=== PATIENT | female | born 1980 | race Caucasian/White ===

== ENCOUNTER 2022-08-29 11:34 | Emergency (ER) | payer SELFPAY ==
[2022-08-29 11:47] VITALS: BP 133/80; PULSE 71; RESP 18; TEMP 36.5; O2SAT 98; BMI 25.6
[2022-08-29 12:11] LABS: Amorphous Sediment Urine 1+ /hpf; Bacteria Urine 1+ /hpf; Bilirubin Urine Neg (Negative); Blood Urine Neg (Negative); Glucose Urine UA Norm (Normal); Ketones Urine Negative (Negative); Leukocyte Esterase Urine Negative (Negative); Nitrate Urine Negative (Negative); Protein Urine Neg (Negative); RBC Urine RARE /hpf (0-2); Sulfosalicylic Acid Urine Negative (Negative); Urine Appearance Cloudy (CLEAR); Urine Color Yellow (Yellow); Urobilinogen Urine Norm (Negative); WBC Urine RARE /hpf (0-5); pH Urine 8 (5-7)
--- NOTE | 2022-08-29 13:46 | W.ED.ABDPA2 ---
HPI - Abdominal Pain General: Chief Complaint: Abdominal Pain Stated Complaint: Abd Pain Time Seen by Provider: 08/29/22 13:35 Source: patient Mode of arrival: EMS Limitations: no limitations History of Present Illness: Patient reports onset of right groin pain around 9:00 this morning. She states it was moderate severe in severity. She noticed a bulge in her right groin area. She denies any abdominal pain. She had nausea and vomiting just prior to arrival. States she had a recent normal bowel movement. Patient denies any fever. She states she has been doing heavy lifting recently due to the recent move. Past surgical history includes D&C. She denies any other abdominal surgery. She takes no routine medications. She denies any medical problems. Associated Symptoms: Reports nausea, vomiting and other (Pain in right groin consistent with hernia.); Denies chills and fever(s) Review of Systems Const: Denies: fever(s) or chills Eyes: Denies: change in vision ENMT: Denies: throat pain Card: Denies: chest pain or palpitations Resp: Denies: dyspnea or wheezing GI: Reports: nausea, vomiting and other (Pain in right groin consistent with hernia.) : Denies: flank pain Musc: Denies: neck pain or back pain Skin/Breast: Denies: rash or pruritus Neuro: Denies: headache(s) or numbness in extremities Psych: Reports: anxiety Collin/Lymph: Denies: enlarged lymph nodes PFS ED Supplemental [facility] Information: D&C Physical Exam Const: COMMON NORMALS: patient oriented x3, no limitations and well nourished GENERAL APPEARANCE: cooperative HENMT: COMMON NORMALS: normocephalic and atraumatic HEAD & SCALP: normocephalic and atraumatic FACE & SINUS: normal facial exam Eye: COMMON NORMALS: EOMs intact bilaterally Neck/C-Spine: COMMON NORMALS: full ROM, no lymphadenopathy, supple and no meningeal signs GENERAL: Yes normal visual inspection Lymph: LYMPHATIC: no lymphadenopathy noted Chest: COMMONS NORMALS: normal inspection of the chest and normal palpation of entire chest wall CHEST: No Ecchymosis present and No rash Resp: COMMON NORMALS: normal respiratory effort, No retractions and clear to auscultation bilaterally EFFORT & INSPECTION: No respiratory distress AUSCULTATION: clear to auscultation bilaterally Cardio: COMMON NORMALS: regular rate, regular rhythm and Peripheral pulses 2+ throughout JUGULAR VENOUS DISTENTION: no JVD RATE: regular rate RHYTHM: regular rhythm PERIPHERAL PULSES: Peripheral pulses 2+ throughout GI: COMMON NORMALS: Normal to inspection, nondistended, normoactive bowel sounds present and non-tender : OTHER: Patient appears to have a hernia to the right femoral area. Hernia is tender palpation. Hernia is partially reducible. However, I was unable to reduce the hernia completely. Extremity: COMMON NORMALS: normal to inspection, full ROM and capillary refill normal Neuro: COMMON NORMALS: patient oriented x3, CN's II-XII intact bilaterally, no focal motor deficits and no sensory deficits noted MENINGEAL SIGNS: Yes no meningeal signs Psych: COMMON NORMALS: mental status grossly normal and Normal thought process present THOUGHT PROCESS: Normal thought process present Skin: COMMON NORMALS: no rashes or lesions noted and no wounds GENERAL SKIN EXAM: no rashes or lesions noted Course Vital Signs: Vital signs: Vital Signs Temperature 97.7 F 08/29/22 11:47 Pulse Rate 71 08/29/22 11:47 Respiratory Rate 16 08/29/22 14:12 Blood Pressure 133/80 08/29/22 11:47 Pulse Oximetry 95 08/29/22 14:12 Oxygen Delivery Me thod 08/29/22 11:47 MDM - Abdominal Pain Medical Decision Making Incarcerated right femoral versus inguinal hernia. 1515: Patient states she had improvement of the swelling to the right groin. I reexamined the patient. The hernia in the right inguinal area has reduced spontaneously. Patient has minimal discomfort in that area now. Awaiting CT results. 1550: Discussed case with Dr. Bailey on-call for general surgery this weekend. 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 She states patient can be discharged home and follow-up with general surgeon next week for surgical consultation. Patient was advised to do no lifting. She was also advised to lay flat is much as possible this weekend. She will return to the hospital if she is unable to reduce the hernia on her own at home if it reoccurs. Lab Data 08/29/22 14:15 08/29/22 14:15 Labs/Radiology: Radiology Impressions Abdomen/Pelvis CT 08/29/22 15:00 IMPRESSION: Incarcerated appearing right femoral hernia currently without bowel obstruction Marked degenerative disc change with disc protrusion at L5-S1 as noted Involuting corpus luteal cyst and a 2 cm left ovarian cyst. Corpus luteum cyst in 2 cm left adnexal cyst Laboratory Results WBC 7.3 10^3/uL (4.0-10.0) 08/29/22 14:15 RBC 4.37 10^6/uL (4.1-5.3) 08/29/22 14:15 Hgb 12.3 g/dL (11.5-15.3) 08/29/22 14:15 Hct 38.7 % (37.0-47.0) 08/29/22 14:15 MCV 88.6 fl (81-99) 08/29/22 14:15 MCH 28.1 pg (28.0-34.0) 08/29/22 14:15 MCHC 31.8 g/dL (30.0-36.0) 08/29/22 14:15 RDW 12.6 % (12.1-15.1) 08/29/22 14:15 Plt Count 307 10^3/cmm (130-400) 08/29/22 14:15 MPV 8.4 fL (7.4-10.4) 08/29/22 14:15 Neut % (Auto) 70.6 % 08/29/22 14:15 Lymph % (Auto) 23.0 % 08/29/22 14:15 Tyler % (Auto) 3.9 % 08/29/22 14:15 Eos % (Auto) 2.1 % 08/29/22 14:15 Baso % (Auto) 0.3 % 08/29/22 14:15 Neut # (Auto) 5.13 10^3/uL (1.8-7.7) 08/29/22 14:15 Lymph # (Auto) 1.7 10^3/uL (0.8-4.8) 08/29/22 14:15 Tyler # (Auto) 0.3 10^3/uL (0.2-0.9) 08/29/22 14:15 Eos # (Auto) 0.2 10^3/uL (0.0-0.8) 08/29/22 14:15 Baso # (Auto) 0.0 10^3/uL (0.0-0.1) 08/29/22 14:15 Nucleated RBC % (auto) 0 % 08/29/22 14:15 Nucleated RBCs # 0.0 /100WBC 08/29/22 14:15 Sodium 137 mmol/L (136-145) 08/29/22 14:15 Potassium 4.0 mmol/L (3.5-5.1) 08/29/22 14:15 Chloride 103 mmol/L (98-107) 08/29/22 14:15 Carbon Dioxide 23 mmol/L (22-29) 08/29/22 14:15 Anion Gap 15.0 (5-19) 08/29/22 14:15 BUN 13 mg/dL (6-20) 08/29/22 14:15 Creatinine 0.6 mg/dL (0.5-0.9) 08/29/22 14:15 GFR Calculation 108.6 mL/min (90-130) 08/29/22 14:15 Glucose 91 mg/dL (65-115) 08/29/22 14:15 Calculated Osmolality 284 mOsm/kg (285-295) L 08/29/22 14:15 Calcium 8.7 mg/dL (8.5-10.5) 08/29/22 14:15 HCG, Qual Negative (Negative) 08/29/22 14:15 Urine Color Yellow (Yellow) 08/29/22 11:42 Urine Appearance Cloudy (CLEAR) A 08/29/22 11:42 Urine pH 8 (5-7) H 08/29/22 11:42 Ur Specific [place] 1.010 (1.005-1.030) 08/29/22 11:42 Urine Protein Neg (Negative) 08/29/22 11:42 Urine Glucose (UA) Norm (Normal) 08/29/22 11:42 Urine Ketones Negative (Negative) 08/29/22 11:42 Urine Blood Neg (Negative) 08/29/22 11:42 Urine Nitrate Negative (Negative) 08/29/22 11:42 Urine Bilirubin Neg (Negative) 08/29/22 11:42 Prot Sulfosalicylic Acd Negative (Negative) 08/29/22 11:42 Urine Urobilinogen Norm mg/dL (Negative) 08/29/22 11:42 Ur Leukocyte Esterase Negative (Negative) 08/29/22 11:42 Urine RBC Rare /hpf (0-2) 08/29/22 11:42 Urine WBC Rare /hpf (0-5) 08/29/22 11:42 Ur Squamous Epith Cells 5-10 /hpf (0-5) H 08/29/22 11:42 Amorphous Sediment 1+ /hpf 08/29/22 11:42 Urine Bacteria 1+ /hpf (NONE) H 08/29/22 11:[address] Abd/Pel: Radiologist's impression: Ordering Provider/Ordering MD: Glynn Reardon MD Date of Service: 08/29/22 Procedure(s): CT abdomen pelvis w con* [id number] Accession Number(s): [id number] Report Number: [id number] WS: [id number] EXAMINATION: CT abdomen pelvis w con* [id number] REASON FOR EXAM: L groin pain; r/o incarcerated femoral hernia right COMPARISON: None available. ORDER DATE: 08/29/2022 3:03 PM TOTAL EXAM DLP: 365.[address] scans at [facility] use at least one of these dose optimization techniques: automated exposure control; mA and/or kV adjustment per patient size (includes targeted exams where dose is matched to clinical indication); or iterative reconstruction. TECHNIQUE: Transaxial imaging through the abdomen and pelvis was performed with 2-D reformats following the intravenous administration of Omnipaque 350 100 ml FINDINGS: There are no acute changes in the visualized lung bases.? There is no sign of pneumoperitoneum. The liver was unremarkable. The gallbladder, spleen and pancreas were unremarkable. There is a normal appearance of both adrenal glands and both kidneys with small renal cysts. The small bowel pattern is not significantly dilated and there are no significant air-fluid levels.? There is a normal-appearing appendix.? There is moderate fecal loading of the colon. There is a small increase in cul-de-sac fluid.? The urinary bladder as imaged is unremarkable. The uterus is unremarkable. There is an incarcerated appearing right femoral hernia containing a loop of small bowel with wall thickening and enhancement. There is marked disc narrowing at L5-S1 with some endplate sclerotic change and prominent left paracentral disc protrusion compressing the thecal sac.. CT/CT abdomen pelvis w con* [id number] IMPRESSION: ? Incarcerated appearing right femoral hernia currently without bowel obstruction Marked degenerative disc change with disc protrusion at L5-S1 as noted Involuting corpus luteal cyst and a 2 cm left ovarian cyst. Corpus luteum cyst in 2 cm left adnexal cyst ? Dictated By: Alan Melgoza MD Signed By: Alan Melgoza MD Signed Date/Time: 08/29/22 1534 DD/ 1519 Discharge Plan Discharge Patient Disposition: Home Clinical Impression: Femoral hernia of right side without obstruction or gangrene Condition: Stable Prescriptions: No Action Pepcid 20 mg Tablet 20 mg PO DAILY Discharge Orders: Discharge ED (Routine); Ordered 08/29/22 Ordered By: Glynn Reardon Referrals: Cade Thacker DO [Physician] - 09/01/22 9:00 am (Call Dr. Thacker's office at 9:00 in the morning on Thursday for follow-up appointment time for this coming week.) Discharge Diet: Regular Discharge Activity: Limit activity as instructed Activity Restrictions/Additional Instructions: You will need to call Dr. Thacker's office on Thursday morning to schedule an appointment next week for evaluation and treatment of right femoral hernia. Take Tylenol or ibuprofen for discomfort. Consider taking stool softener twice a day to keep stool soft until hernia is repaired. Avoid lifting. Avoid straining. Lay flat is much as possible. If hernia recurs, try to push hernia back in. If unable to reduce the hernia, return the emergency room for evaluation. Coding Level of Care Code ED Institute Director for Chg Fwd History Comprehensive Exam Comprehensive Medical Decision Making Moderate Complexity
[2022-08-29 14:12] VITALS: RESP 16; O2SAT 95
[2022-08-29] MEDS: HYDROmorphone 1 mg/mL INJ 1 mL 0.5 MG IVP (14:12)
[2022-08-29] MEDS: sodium chloride 0.9% 1,000 ML 999 ML IV (14:14)
[2022-08-29] MEDS: ondansetron 2 mg/ML SDV 2 mL 4 MG IVP (14:14)
[2022-08-29 14:45] LABS: Basophils % 0.3 %; Eosinophils # 0.2 10^3/uL (0.0-0.8); Eosinophils % 2.1 %; Hematocrit 38.7 % (37.0-47.0); Hemoglobin 12.3 g/dL (11.5-15.3); Lymphocytes # 1.7 10^3/uL (0.8-4.8); Mean Corpuscular HGB Conc 31.8 g/dL (30.0-36.0); Mean Corpuscular Hemoglobin 28.1 pg (28.0-34.0); Mean Corpuscular Volume 88.6 fl (81-99); Mean Platelet Volume 8.4 fL (7.4-10.4); Monocytes # 0.3 10^3/uL (0.2-0.9); Monocytes % 3.9 %; Neutrophils # 5.13 10^3/uL (1.8-7.7); Neutrophils % 70.6 %; Nucleated Red Blood Cells % 0 %; Platelet Count 307 10^3/cmm (130-400); Red Blood Count 4.37 10^6/uL (4.1-5.3); Red Cell Distribution Width 12.6 % (12.1-15.1); White Blood Count 7.3 10^3/uL (4.0-10.0)
[2022-08-29 14:52] LABS: HCG, Serum Qual Negative (Negative)
[2022-08-29 14:58] LABS: Blood Urea Nitrogen 13 mg/dL (6-20); Calcium 8.7 mg/dL (8.5-10.5); Carbon Dioxide 23 mmol/L (22-29); Chloride 103 mmol/L (98-107); Glomerular Filtration Rate 108.6 mL/min (90-130); Glucose 91 mg/dL (65-115); Osmolality Calculated 284 mOsm/kg (285-295); Sodium 137 mmol/L (136-145)
--- NOTE | 2022-08-29 15:00 | CT_ITS ---
WS: [id number] EXAMINATION: CT abdomen pelvis w con* [id number] REASON FOR EXAM: L groin pain; r/o incarcerated femoral hernia right COMPARISON: None available. ORDER DATE: 08/29/2022 3:03 PM TOTAL EXAM DLP: 365.[address] scans at [facility] use at least one of these dose optimization techniques: automated e xposure control; mA and/or kV adjustment per patient size (includes targeted exams where dose is matc hed to clinical indication); or iterative reconstruction. TECHNIQUE: Transaxial imaging through the abdomen and pelvis was performed with 2-D reformats followi ng the intravenous administration of Omnipaque 350 100 ml FINDINGS: There are no acute changes in the visualized lung bases. There is no sign of pneumoperitoneum. The liver was unremarkable. The gallbladder, spleen and pancreas were unremarkable. There is a normal appearance of both adrenal glands and both kidneys with small renal cysts. The small bowel pattern is not significantly dilated and there are no significant air-fluid levels. There is a normal-appearing appendix. There is moderate fecal loading of the colon. There is a small increase in cul-de-sac fluid. The urinary bladder as imaged is unremarkable. The uterus is unremarkable. There is an incarcerated appearing right femoral hernia containing a loop of small bowel with wall th ickening and enhancement. There is marked disc narrowing at L5-S1 with some endplate sclerotic change and prominent left parace ntral disc protrusion compressing the thecal sac.. CT/CT abdomen pelvis w con* [id number] IMPRESSION: Incarcerated appearing right femoral hernia currently without bowel obstruction Marked degenerative disc change with disc protrusion at L5-S1 as noted Involuting corpus luteal cyst and a 2 cm left ovarian cyst. Corpus luteum cyst in 2 cm left adnexal cyst
[2022-08-29] MEDS: iohexol 350 mg/mL 500 mL Btl (per mL) IV (15:15)
[2022-08-29 16:31] LABS: SARS Covid-2 Antigen Negative (Negative)
[2022-08-29 16:48] VITALS: BP 136/82; PULSE 70; RESP 16; O2SAT 97
== END 2022-08-29 16:50 | disposition home or self-care (01) ==
PROVIDERS: Family Medicine; Emergency Provider Family Medicine
DX: K41.90 Unilateral femoral hernia, without obstruction or gangrene, not specified as recurrent (principal)
CPT/HCPCS: 74177; 80048; 81001; 84703; 85025; 87426; 96361; 96374; 96375; 99285; J1170; J2405; J7030; Q9967

== ENCOUNTER → 2022-10-23 06:00 | Day surgery (SDC) | payer OTHER, SELFPAY ==
[2022-10-22 11:04] VITALS: BMI 24.5
== END ==
PROVIDERS: Visit Provider Surgery
DX: K41.90 Unilateral femoral hernia, without obstruction or gangrene, not specified as recurrent (principal); Z01.818 Encounter for other preprocedural examination
CPT/HCPCS: 81025

== ENCOUNTER 2022-11-10 09:35 | Day surgery (SDC) | payer OTHER, SELFPAY ==
[2022-11-07 08:39] VITALS: BMI 24.5
[2022-11-10] VITALS (8 sets, daily range): BP systolic 120–155; BP diastolic 58–92; PULSE 72–85; RESP 16; TEMP 36.3–36.8; O2SAT 93–100
[2022-11-10 10:09] LABS: OR HCG Qualitative Urine Negative (Negative)
[2022-11-10] MEDS: sodium chloride 0.9% 1,000 ML 30 ML IV (10:09)
--- NOTE | 2022-11-10 10:52 | ANES.PREANE2 ---
Pre-Anesthetic Assessment Height/Weight: Height 1.57 m Weight 60.781 kg Temp Pulse Resp BP Pulse Ox O2 Del Method 97.3 F L 72 16 155/92 99 11/10/22 10:04 11/10/22 10:04 11/10/22 10:04 11/10/22 10:04 11/10/22 10:04 11/10/22 10:06 Preop Diagnosis: Right femoral hernia Operation Date: 11/10/22 10:05 Proposed Procedures p [id number] lap riht femoral hernia w/mesh,K41.9(Right) - Cade Thacker DO Familial anesthetic complications: None Was Beta Derek taken within 24 hours: N/A Was Clonidine taken within 24 hours: N/A Last intake: Intake Last Liquid Date 11/09/22 Last Liquid Time 22:00 Last Solid Date 11/09/22 Last Solid Time 22:00 Social Tobacco and No alcohol Exam alert, oriented x 3, clear to auscultation bilaterally and regular rate & rhythm Airway Mallampati: Class II Dentition: other (missing) Anesthetic Plan ASA status: 1 Anesthesia: General Risk of > 500 ml blood loss (7ml/kg in children): No Medications/Allergies Home Medications Medication Instructions Recorded Confirmed Last Taken Type No Known Home Medications 10/22/22 11/07/22 Unknown History Allergies Allergy/AdvReac Type Severity Reaction Status Date / Time No Known Allergies Allergy Verified 11/07/22 08:38 Current Medications Generic Name Dose Route Start Last Admin Trade Name Freq PRN Reason Stop Dose Admin Sodium Chloride 1,000 mls @ 30 mls/hr 11/10/22 10:00 11/10/22 10:09 Sodium Chloride 0.9% IV 11/11/22 09:59 30 mls/hr .Q24H TRENA Administration PFSH Anesthesia Female Reproductive History Date of last menstrual period: 11/05/22 Data Anesthesia Cardiac Studies: No Data to Display
--- NOTE | 2022-11-10 11:32 | PM.HP ---
Providers/Chief Complaint Chief Complaint: K41.9 History of Present Illness Angeline Green is a 42 year old female here for laparoscopic repair of right femoral hernia with mesh Medications/Allergies Home Medications Medication Instructions Recorded Confirmed Last Taken Type No Known Home Medications 10/22/22 11/07/22 Unknown History Allergies Allergy/AdvReac Type Severity Reaction Status Date / Time No Known Allergies Allergy Verified 11/07/22 08:38 PFSH Acute PFSH: Surgical History (Updated 11/10/22 @ 11:33 by Cade Thacker DO) History of chest tube placement History of D&C History of ear surgery Female Reproductive History: Date of last menstrual period: 11/05/22 Vitals/I&O/Wt Last Vital Signs Temp 97.3 F L 11/10/22 10:04 Pulse 72 11/10/22 10:04 Resp 16 11/10/22 10:04 BP 155/92 11/10/22 10:04 Pulse Ox 99 11/10/22 10:04 O2 Del Method 11/10/22 10:06 A&P Assessment and plan (1) Femoral hernia of right side: Plan Laparoscopic repair of right femoral hernia with mesh Attestations Medical Necessity Statement*: Home Coding Level of Care Code Acute Code for Chg Fwd Diagnoses Femoral hernia of right side K41.90
[2022-11-10] MEDS: ceFAZolin 2,000 MG in sodium chloride 0.9% (plus) 50 ML 100 MG IV (11:59)
--- NOTE | 2022-11-10 13:03 | PM.OP ---
Operative Report Date of procedure: November 10, 2022 Pre-op diagnosis: Preop Diagnosis Right femoral hernia Post-op diagnosis: same Procedure done: Laparoscopic (TEPP) right femoral hernia repair with mesh Implants: Large right 3D max Bard mesh Specimens removed/disposition: None Surgeon: Dr. Cade Thacker DO Anesthesia: General Estimated blood loss (mL): 5 Complications: None apparent Brief History: This a very pleasant 42-year-old female with a large right femoral hernia. Laparoscopic repair with mesh is indicated. The risk and benefits were explained and documented. Procedure: Patient was wheeled into the operative room and placed on the OR table in a supine position. Abdomen was inspected prepped and draped in usual sterile fashion. Time-out was performed and all present were in agreement. A 15 blade scalpel was used to make 1.2 centimeter incision infraumbilically. Combination of sharp and blunt dissection was performed down to the anterior rectus sheath which was opened sharply. The dissecting balloon was then inserted into the space of Retzius and blown up. We put the camera into the port and identified that we were in the correct space. I then placed 2 5 millimeter trocars suprapubically in the midline. I then used endokitners to bluntly dissect in the space of Retzius out laterally. A femoral hernia was identified on the right. Blunt dissection was performed to dissect the hernia sac completely out of the hernia. A large right inguinal mesh was then placed into the space of Retzius. The mesh was unrolled and tacked once medially at the pubic bone. The mesh laid out nicely over the hernia defect. The hernia sac laid underneath the mesh. I watched the hernia sac remained in place as insufflation was removed. Incisions were closed with 4 O Monocryl in a subcuticular interrupted fashion. Skin glue was applied. Patient tolerated the procedure well.
[2022-11-10] MEDS: lidocaine-epi 2% 20 mL INJ INJECTION (13:06)
[2022-11-10] MEDS: diphenhydrAMINE 50 mg/mL SDV 1mL 25 MG IVP (13:42)
[2022-11-10] MEDS: ondansetron 2 mg/ML SDV 2 mL 4 MG IVP (13:57)
--- NOTE | 2022-11-10 14:00 | SUR.PHASEII ---
Phase II Nausea Patient c/o post-op nausea. 4mg Zofran IVP given per protocol orders. Patient states some relief.
--- NOTE | 2022-11-10 14:25 | ANE.PACU2 ---
Inpatient post-anesthesia follow up: Airway intact: Yes Vital signs: Temperature 98.1 F Pulse Rate 85 Respiratory Rate 16 Blood Pressure 125/78 Pulse Oximetry 99 Oxygen Delivery Me thod Room Air Oxygen Flow Rate Fraction of Inspir ed Oxygen Hydration adequate: Yes Nausea and vomiting: Yes Pain level: 1 Mental status: Baseline
== END 2022-11-10 14:29 | disposition home or self-care (01) ==
PROVIDERS: Anesthesiology; Visit Provider Surgery
PROC: 0YQ74ZZ Repair Right Femoral Region, Percutaneous Endoscopic Approach (ICD-10-PCS; CPT 49550; principal; 2022-11-10 09:55)
DX: K41.90 Unilateral femoral hernia, without obstruction or gangrene, not specified as recurrent (principal)
CPT/HCPCS: 49550; 49659; 51702; 81025; 84703; C1781; J0690; J1100; J1200; J1885; J2405; J2704; J3010; J3490; J7030

== ENCOUNTER 2023-03-22 11:46 | Emergency (ER) | payer OTHER, SELFPAY ==
[2023-03-22 11:58] VITALS: BP 142/89; PULSE 85; RESP 14; TEMP 36.9; O2SAT 100; BMI 25.0
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
[2023-03-22] MEDS: HYDROcodone-acetaminophen 5-325 mg Tablet 1 TAB PO (12:23)
[2023-03-22] MEDS: neomycin-poly-bacitracin oint 28 gm 1 APPLIC TOPICAL (12:24)
== END 2023-03-22 13:14 | disposition home or self-care (01) ==
PROVIDERS: Emergency Provider Emergency Medicine
DX: T23.001A Burn of unspecified degree of right hand, unspecified site, initial encounter (principal); T23.071A Burn of unspecified degree of right wrist, initial encounter; X10.2XXA Contact with fats and cooking oils, initial encounter
CPT/HCPCS: 99283